=== PATIENT | male | born 1985 | race Caucasian/White ===

== ENCOUNTER 2018-08-05 18:55 | Emergency (ER) | payer MEDICAID, OTHER ==
[~2018-08-05] VITALS: Ht 172.7 cm; Wt 76.0 kg
[2018-08-05 19:02] VITALS: BP 153/90
[2018-08-05] MEDS ORDERED: PENI250T2 PO (20:31)
== END 2018-08-05 20:48 | disposition home or self-care (01) ==
LOC: ER 18:56
DX: K04.7 Periapical abscess without sinus (principal); Z88.1 Allergy status to other antibiotic agents
CPT/HCPCS: 99283

== ENCOUNTER 2019-10-29 16:04 | Emergency (ER) | payer MEDICAID, OTHER ==
[~2019-10-29] VITALS: Ht 172.7 cm; Wt 81.8 kg
[2019-10-29 16:20] VITALS: BP 138/87
[2019-10-29] MEDS ORDERED: CLIN300C70 PO (17:10)
[2019-10-29] MEDS ORDERED: IBUP-1984 PO (17:10)
[2019-10-29] MEDS ORDERED: ondansetron 4mg rapidly disintigrating tab PO ONE (17:10)
[2019-10-29] MEDS ORDERED: HYDROcodone/acetaminophen 5mg/325mg tablet PO ONE (17:10)
== END 2019-10-29 17:35 | disposition home or self-care (01) ==
LOC: ER 16:04
DX: K04.7 Periapical abscess without sinus (principal); Z88.8 Allergy status to other drugs, medicaments and biological substances; Z79.2 Long term (current) use of antibiotics; Z79.899 Other long term (current) drug therapy
CPT/HCPCS: 99283

== ENCOUNTER 2020-10-01 11:29 | Emergency (ER) | payer SELFPAY ==
[~2020-10-01] VITALS: Ht 172.7 cm; Wt 71.0 kg
[2020-10-01 11:32] VITALS: BP 161/85
[2020-10-01] MEDS ORDERED: ketorolac tromethamine 15mg/ml inj. IM ONE (12:20)
[2020-10-01] MEDS ORDERED: IBUP-1984 PO (12:39)
== END 2020-10-01 13:21 | disposition home or self-care (01) ==
LOC: ER 11:30
DX: S69.91XA Unspecified injury of right wrist, hand and finger(s), initial encounter (principal); M25.531 Pain in right wrist; Z87.442 Personal history of urinary calculi; Z88.1 Allergy status to other antibiotic agents; Z79.899 Other long term (current) drug therapy; W19.XXXA Unspecified fall, initial encounter; Y93.89 Activity, other specified; Y92.89 Other specified places as the place of occurrence of the external cause; Y99.8 Other external cause status
CPT/HCPCS: 29125; 73110; 96372; 99283; J1885

== ENCOUNTER 2022-01-18 14:34 | Emergency (ER) | payer MEDICAID ==
[~2022-01-18] VITALS: Ht 172.7 cm; Wt 75.2 kg
[~2022-01-18 14:34] MED LIST: IBUP-1986 PO
[2022-01-18 14:57] VITALS: BP 135/75
[2022-01-18] MEDS ORDERED: DOXY100C76 PO (15:25)
== END 2022-01-18 15:39 | disposition home or self-care (01) ==
LOC: ER 14:35
DX: L03.113 Cellulitis of right upper limb (principal); M79.644 Pain in right finger(s); F17.200 Nicotine dependence, unspecified, uncomplicated; Z87.442 Personal history of urinary calculi; Z88.1 Allergy status to other antibiotic agents; Z79.2 Long term (current) use of antibiotics; Z79.899 Other long term (current) drug therapy
CPT/HCPCS: 99283